=== PATIENT | male | born 1955 | race Caucasian/White ===

== ENCOUNTER → 2019-02-15 | Emergency (ER) | payer OTHER ==
[~2019-02-15] VITALS: Ht 167.6 cm; Wt 93.0 kg
[~2019-02-15] MED LIST: ALBUTEROL; BUDESONIDE0.5 MG/2 M IH; DIOVAN160 M1 PO; LEVALBUTER1.25 MG/3 IH; MEDROLPACK PO; MUCINEX DM ER1 EAC1 PO; NABUMETONE500 MG PO; PERCOCET 5/3251 TAB PO; SYNTHROID50 MCG PO; TESSALON PERLE100 M1 PO; ZITHROMAX500 MG PO
== END | disposition home or self-care (01) ==
LOC: ER 19:41
DX: J06.9 Acute upper respiratory infection, unspecified (principal); J98.01 Acute bronchospasm